=== PATIENT | male | born 2000 ===

== ENCOUNTER 2024-04-17 12:28 | Inpatient (IN) | payer OTHER ==
[~2024-04-17] VITALS: Ht 162.6 cm; Wt 113.4 kg
[2024-04-17] MEDS ORDERED: DiphenhydrAMINE HCl 50 MG Cap PO PRN (14:35)
[2024-04-17] MEDS ORDERED: Calcium Carbonate 500 MG Tab Chew PO PRN (14:35)
[2024-04-17] MEDS ORDERED: HydrOXYzine Pamoate 50 MG Cap PO PRN (14:40)
[2024-04-17] MEDS ORDERED: Haloperidol Lactate Inj. 5 MG/ML Injection IM PRN (14:40)
[2024-04-17] MEDS ORDERED: FLU VACC TS2024-25(6MOS UP)/PF 45 MCG/0.5 ML SYRINGE IM SCH (14:40)
[2024-04-17] MEDS ORDERED: DiphenhydrAMINE HCl 50 MG/ML 1ML Vial IV PRN (14:40)
[2024-04-17] MEDS ORDERED: Acetaminophen 325 MG TABLET PO PRN (14:40)
[2024-04-17] MEDS ORDERED: Aluminum Hydroxide 320MG/5ML 473 ML PO PRN (14:40)
[2024-04-17] MEDS ORDERED: Ibuprofen 600 MG Tab PO PRN (14:40)
[2024-04-17] MEDS ORDERED: Polyethylene Glycol 3350 17 gm PO PRN (14:45)
[2024-04-17] MEDS ORDERED: OLANZapine ODT 10 MG Tab MM PRN (14:45)
[2024-04-17] MEDS ORDERED: TraZODone HCl 50 MG Tab PO PRN (14:45)
[2024-04-17] MEDS ORDERED: Ondansetron 4 MG SoluTab MM PRN (14:45)
[2024-04-17] MEDS ORDERED: Haloperidol 5 MG Tab PO PRN (14:45)
[2024-04-17] MEDS ORDERED: Melatonin 3 MG Tab PO PRN (14:45)
[2024-04-17] MEDS ORDERED: LORazepam 2 MG/ML 1ML Injection IM PRN (14:45)
[2024-04-17] MEDS ORDERED: LORazepam 2 MG Tab PO PRN (14:50)
[2024-04-17] MEDS ORDERED: ALBU90OI INH (17:23)
[2024-04-17] MEDS ORDERED: SYMBICORT 80-10.2 GM (17:27)
[2024-04-17] MEDS ORDERED: FEROSUL PO (17:32)
[2024-04-17] MEDS ORDERED: Prozac20 MG PO (17:33)
[2024-04-17] MEDS ORDERED: LITH300C PO (17:34)
[2024-04-17] MEDS ORDERED: METFORMIN ER G500 MG PO (17:36)
[2024-04-17] MEDS ORDERED: DEPO-TESTO200 MG/1 M IM (17:41)
--- NOTE | 2024-04-17 18:04 | NUR ---
ADMIT AND SHIFT SUMMARY AT 1415 PATIENT ARRIVED TO UNIT VIA SECURE TRANSPORT FROM [facility] IN [place]. CONTINUES TO VERBALIZE HAVING SI THOUGHTS, BUT NO PLAN TO HARM SELF WHILE HERE. NO HI OR AVH. BECOMING TEARFUL SEVERAL TIMES DURING INTAKE QUESTIONS, THEN AFTER GIVING TOUR OF UNIT PATIENT VERBALIZED FEELING OVERWHELMED AND CRYING. AFTER SPENDING TIME IN SENSORY ROOM AND MAKING A PHONE CALL, PATIENT APPEARS TO BE IN BETTER SPIRITS. PATIENT JOINING PEERS AT DINNER AND REQUESTING A JOURNAL.
[2024-04-17 18:12] VITALS: BP 144/95
[2024-04-17] MEDS ORDERED: Mometasone/Formoterol MDI 100/5 mcg 13 GM INH SCH (18:45)
[2024-04-17] MEDS ORDERED: Albuterol HFA200 ACT/6.7 GM INH INH PRN (18:45)
[2024-04-17] MEDS ORDERED: Ferrous Sulfate 325 MG Tab PO SCH (21:00)
[2024-04-17] MEDS ORDERED: FLUoxetine HCL 20 MG CAP PO SCH (21:00)
[2024-04-17] MEDS ORDERED: Lithium Carbonate 300 MG Cap PO SCH (21:00)
[2024-04-17 22:49] VITALS: BP 128/88
--- NOTE | 2024-04-18 04:27 | NUR ---
SHIFT SUMMARY PT PRESENT BY NURSES STATION AT START OF SHIFT TALKING ON THE TELEPHONE WITH HIS SIGNIFICANT OTHER, KENNY. PT C/O A SORE THROAT AND RECEIVED TYLENOL AND ADVIL, WITH RELIEF. PT HAS DENIED ANY SI, HI OR AVH. HE HAD EVENING SNACK, WAS COMPLIANT WITH MEDICATIONS. HE RECEIVED PRN TRAZODONE AND MELATONIN. HE WENT TO BED AROUND 2044. HE HAS APPEARED TO SLEEP WELL THROUGHOUT THE NIGHT WITH RESPIRATIONS CONFIRMED. Q15 MINUTE CHECKS BY STAFF PER UNIT PROTOCOL.
[2024-04-18] MEDS ORDERED: MetFORMIN HCl 500 mg PO SCH (08:00)
[2024-04-18 08:23] VITALS: BP 133/86
[2024-04-18] MEDS ORDERED: Multivitamins 1 Tab PO SCH (09:00)
--- NOTE | 2024-04-18 16:46 | NUR ---
SHIFT SUMMARY PT WAS UP AND HAS PARTICIPATED IN ALL MEALS DURING THIS SHIFT. PT MOSTLY STAYED IN BED THROUGHOUT THE DAY BUT DID PARTICIPATE IN A COUPLE OF ACTIVITY GROUPS. SOMEWHAT WITHDRAWN AND NOT VERY FORTHCOMING WITH INFORMATION. PT DID HAVE A GIRLFRIEND COME VISIT AND SHE DROVE DOWN FROM [place] TO SEE THE PT. PT HAS DENIED SI/HI/AVH THROUGHOUT THE SHIFT, CONTINUED Q15 SAFETY CHECKS THROUGHOUT THE SHIFT TO ENSURE PT SAFETY.
[2024-04-18 20:10] VITALS: BP 133/100
--- NOTE | 2024-04-19 05:27 | NUR ---
SHIFT NOTE: AT THE START OF THE SHIFT PT WAS CALM AND WATCHING TV WITH PEERS. AFTER SNACK PT C/O INCREASING ANXIETY AND REQUESTED A PRN FOR ANXIETY. WHILE MEDICATING PT WITH 2100 MEDS AND VISTARIL PRN PT STARTED TO BECOME TEARFUL. OFFERED THE SENSORY ROOM TO PT TO TRY TO CALM DOWN. PT SPOKE WITH CRN IN THE SENSORY ROOM AND THEN STAYED IN IT FOR A SHORT AMOUNT OF TIME UNTIL CALM, THEN JOINED PEERS IN THE GROUP ROOM TO FINISH COLLAGE AND WATCH TV. PT'S MAIN TRIGGER WAS THAT PT DOES NOT FEEL LIKE PEOPLE ACCEPT HIS TRANSITIONING FROM FEMALE TO MALE AND THE LACK OF RESOURCES AND SUPPORT IS CONTRIBUTING TO THE DIFFICULTIES AND ANXIETY PT IS HAVING. CRN FOUND RESOURCES THAT PT CAN USE WHEN HOME, PACKET PRINTED AND HANDED TO DAY SHIFT TO PASS ON TO PT WHEN AWAKE. PT WENT TO BED AFTER COLLAGE FINISHED, AND REMAINED IN ROOM FOR THE REST OF THIS SHIFT. PT WAS COMPLIANT WITH MEDICATIONS AND REDIRECTIONS THIS SHIFT.
[2024-04-19 08:08] VITALS: BP 130/86
--- NOTE | 2024-04-19 15:26 | NUR ---
PT VERY DIFFICULT TO WAKE FOR BKFT, HE DID EVENTUALLY ATTEND AND AFTER TAKING MEDICATION HE WAS BACK INTO BED. HE WAS UP FOR LUNCH, OFFERED A SHOWER AND STATED HE PREFERS AND EVENING SHOWER. DENIED SI/HI/AVH AT THAT TIME WELL. LAST CHANCE GIVEN FOR SNACK TIME, HE HAS SLEPT OR REMAINED IN HIS ROOM ALL DAY. ATTEMPTED TO SPEAK TO HIM AT ONE TIME ABOUT HIS TESTOSTERONE MEDICATION, HE SHRUGGED AND WALKING AWAY, HE STATED IT DOESN'T REALLY MATTER. HE CONTINUES TO SLEEP AT THIS TIME AND IS BEING MONITORED Q15 FOR SAFETY
[2024-04-19] MEDS ORDERED: OLANZapine 5 MG Tab PO SCH (21:00)
[2024-04-19 21:04] VITALS: BP 143/101
--- NOTE | 2024-04-20 04:26 | NUR ---
SHIFT SUMMARY: PATIENT WAS IN THE GROUP ROOM WATCHING A MOVIE AT THE BEGINNING OF THE SHIFT. HE PARTICIPATED IN SNACK AND FOLLOW UP IN THE DINING ROOM AT 1999. HE WAS MOSTLY MEDICATION COMPLIANT. HE DID WANT PRN MELATONIN, TRAZODONE AND VISTARIL FOR SLEEP. HE REFUSED HIS ZYPREXA, STATING, "I DON'T TAKE THAT". MEDICATION EDUCATION WAS RECEIVED STOICALLY. HE WAS INFORMED THAT RN WOULD HAVE THE MEDICATION AVAILABLE FOR THE NEXT HOUR. AT THAT TIME, RN PLACED IT IN THE RETURN BIN FOR THE PHARMACY. HE DID NOT REAPPROACH FOR THE ZYPREXA, AND SO DID NOT HAVE IT ON THIS SHIFT. HE DENIED ANY THOUGHTS OF SUICIDAL IDEATION OR SELF HARMING. HE STATED THAT HE WAS "DISSOCIATING FROM ANXIETY". HE DID NOT WANT TO TRY THE ZYPREXA FOR THAT PURPOSE. HE DID AGREE TO TRY THE SENSORY ROOM, WHICH APPEARED TO HAVE GOOD EFFECT, ALTHOUGH HE WAS STOIC AND DID NOT ANSWER MANY QUIERIES ABOUT SUCCESS OF SAME. HE WENT TO BED AFTER SITTING IN THE SENSORY ROOM FOR A TIME, AND WAS NOTED TO BE RESTING QUIETLY WITH EYES CLOSED AND RESPIRATIONS CONFIRMED FOR THE REMAINDER OF THE SHIFT. CONTINUING TO MONITOR FOR SAFETY WITH Q15 MINUTE CHECKS.
[2024-04-20 07:58] VITALS: BP 131/87
[2024-04-20 08:33] VITALS: BP 124/77
--- NOTE | 2024-04-20 12:35 | NUR ---
NURSE NOTE: RECIEVED REPORT FROM MEGGAN SLADE, WILL ASSUME CARE OF PT.
--- NOTE | 2024-04-20 17:41 | NUR ---
SHIFT NOTE: PT SPENT MOST OF THE DAY IN ROOM. DID NOT PARTICIPATE IN GROUP TIME WITH PEERS. NO PRN MEDICATIONS RECIEVED THE SHIFT. PT WAS COMPLIANT WITH MEDICATIONS THIS AFTERNOON. Q15 MINUTE CHECKS WERE PREFORMED AND TO CONTINUE.
[2024-04-20 20:55] VITALS: BP 139/93
--- NOTE | 2024-04-21 04:26 | NUR ---
SHIFT SUMMARY: PATIENT WAS IN BED AT THE BEGINNING OF THIS SHIFT. HE GOT UP FOR SNACK AND FOLLOW UP AT 1999. HE WAS COMPLIANT WITH EVENING MEDICATION ADMINISTRATION. HE DID NOT REFUSE ZYPREXA THIS SHIFT, BUT DID REFUSE HIS IRON, STATING, "I ONLY NEED ONE OF THOSE A DAY". HE SPENT THE REST OF THE SHIFT RESTING QUIETLY IN BED WITH EYES CLOSED AND RESPIRATIONS CONFIRMED. HE DENIED THOUGHTS OF SELF HARM OR SUICIDAL IDEATION THIS SHIFT. CONTINUING TO MONITOR FOR SAFETY WITH Q15 MINUTE CHECKS.
[2024-04-21 08:42] VITALS: BP 120/65
--- NOTE | 2024-04-21 17:51 | NUR ---
SHIFT ASSESSMENT PT HAS SHOWN IMPROVEMENT TODAY OVER THE LAST 3 DAYS THAT THIS RN HAS CARED FOR HIM. HE HAS BEEN UP FOR ALL MEALS, PARTICIPATED IN 2 GROUPS AND WAS PARTIALLY INVOLVED IN ANOTHER. THIS EVENING PT APPROACHED AND SHARED MORE INFORMATION THAN HE HAS IN THE 4 DAYS THIS RN HAS CARED FOR HIM. HE STS HE IS STILL ENROLLED AT [employer] BUT IS NOT ACTIVELY ATTENDING CLASSES. HE IS 3 TERMS FROM FINISHING AND WANTS TO THEN OBTAIN HIS MASTERS IN SCIENCE, HOWEVER, HE STS NOT BEING THAT GOOD WITH MATH AND IS AFRAID TO APPROACH THAT CONCEPT. PT THEN SHARED THAT HE IS SLOWLY STARTING TO FEEL "ANXIOUS" AND THIS IS WHAT HAPPENS BEFORE HE BECOMES MANIC. OLANZIPINE WORKS BEST HE SAYS BUT IT PUTS HIM INTO DEEP SLEEP. Q15 MIN CHECKS TO ENSURE SAFETY
[2024-04-21 22:08] VITALS: BP 126/86
--- NOTE | 2024-04-22 04:39 | NUR ---
SHIFT SUMMARY PT ON TELEPHONE WITH SIGNIFICANT OTHER AT START OF SHIFT. PT DENIES ANY SI, HI OR AVH. PT REPORTED THAT HE FEELS BETTER, BUT IS WORRIED THAT HE IS GOING TO START TO HAVE A MANIC PHASE. PT IS CALM, AND FLAT. HE INTERACTS IN GROUP ROOM, WATCHING TV WITH PEERS AND STAFF. HE HAD HIS EVENING SNACK. HE WAS COMPLIANT WITH ALL MEDS EXCEPT FOR FERROUS SULFATE. HE REQUESTED AND RECEIVED PRN MELATONIN AND TRAZODONE. PT WENT TO BED AROUND 2145, AND HAS APPEARED TO SLEEP MOST OF THE NIGHT, WITH RESPIRATIONS CONFIRMED. Q15 MINUTE CHECKS TO CONTINUE PER UNIT PROTOCOL.
[2024-04-22] MEDS ORDERED: Testosterone Cypionate 200 MG / ML Vial IM SCH (09:00)
--- NOTE | 2024-04-22 16:52 | NUR ---
SHIFT NOTE PT A&O X4 THIS SHIFT. SLEPT THROUGH BREAKFAST AND REFUSED TO GET OOB UNTIL BEFORE LUNCH. PT DENIES SI/HI/AVH BUT C/O FEELING VERY TIRED THIS MORING. PT PARTICIPATED IN ALL SNACKS AND SOME MEALS THIS SHIFT. AFTER LUNCH PT SPENT SOME TIME 1:1 WITH SHAWNA ALBRIGHT. IN THE AFTERNOON PT PARTICIPATED IN OPEN GROUP ROOM AND WATCHED SOME TV AND LATER PLAYED CARD GAME WITH ELLIOTT GREEN AND SHAWNA ALBRIGHT AND FELLOW PEER. NO TEARFUL EPISODES WERE WITNESSED BY THE RN THIS SHIFT. PT WAS COMPLIANT WITH ALL MEDICATIONS.
[2024-04-22 20:27] VITALS: BP 132/96
--- NOTE | 2024-04-23 04:23 | NUR ---
SHIFT SUMMARY PATIENT UP AMBULATING IN HALLS WITH PEER. DENIES SI, HI OR AVH. PATIENT VERBALIZED SLIGHT URGE TO PICK AT SKIN, SMALL AMT OF ACNE TO RIGHT CHEEK INFLAMED NO OTHER EVIDENCE OF PICKING SEEN. PATIENT APPEARS TO BE SLEEPING AT THIS TIME WITH PRN MELATONIN AND TRAZODONE
[2024-04-23 08:05] VITALS: BP 107/70
[2024-04-23] MEDS ORDERED: Mometasone/Formoterol MDI 100/5 mcg 13 GM INH SCH (09:00)
--- NOTE | 2024-04-23 18:15 | NUR ---
SHIFT SUMMARY PT AxOx4. PLEASANT AND COOPERATIVE WITH CARE. PT DENIES SI/HI AND AVTH THIS SHIFT. PT SLEPT IN THROUGH FIRST GROUP, BUT ATTENDED ALL OTHERS THIS SHIFT INCLUDING MINGLING APPROPRIATELY WITH STAFF AND PEERS IN [place]. PROVIDER ORDERED INCREASE IN [place] TO BE STARTED THIS EVENING. PT AWARE AND AGREEABLE TO TREATMENT PLAN. PT IS CURRENTLY SITTING IN GROUP ROOM WATCHING A MOVIE WITH OTHERS. DENIES ANY NEEDS AT THIS TIME.
[2024-04-23] MEDS ORDERED: Lithium Carbonate 300 MG Cap PO SCH (21:00)
[2024-04-23 21:53] VITALS: BP 131/85
--- NOTE | 2024-04-24 04:02 | NUR ---
SHIFT SUMMARY PATIENT DENIES SI, HI, AND AVH. VERBALIZED THAT HE IS FEELING "MORE AWAKE TODAY" UP IN [place] BETWEEN ACTIVITIES, USING JOURNAL AND DRAWING PICTURES. PATIENT SLEEPING WELL T/O NIGHT WITH MELATONIN GIVEN FOR SLEEP.
--- NOTE | 2024-04-24 08:32 | NUR ---
PT DECLINED TO GET UP FOR BREAKFAST.
[2024-04-24] MEDS ORDERED: Lithium Carbonate 300 MG Cap PO SCH (09:00)
[2024-04-24 09:42] VITALS: BP 148/93
--- NOTE | 2024-04-24 11:24 | NUR ---
DISCHARGE INFORMATION: SPOKE WITH PT AND CONFIRMED PCP AND PHARMACY. PHARMACY: [facility]. [phone] PCP: NICOLE MCNULTY AT [facility].[phone] CALL PLACED TO [facility] AND SPOKE WITH BERLIN DYER. FOLLOW UP APPOINTMENT SCHEDULED WITH PRICILA FOR: 04/30 @ 11:00 AM. PT NEEDS TO ARRIVE AT 10:55. [facility]OME[facility] SLADE REQUESTED THAT ADMISSION NOTES BE FAXED TO TO THEM AT [phone] (ATTENTION GOMEZ)
--- NOTE | 2024-04-24 15:53 | NUR ---
DISCHARGE TRANSPORTATION: CALL PLACED TO [facility] LINE AT [phone]. TRANSPORT ARRANGED FOR 04/25 AT 1300 WITH [facility]. REQUESTED THAT STAFF CALL IF RIDE IS MORE THAN 15 MINUTES LATE.
--- NOTE | 2024-04-24 17:08 | NUR ---
SHIFT SUMMARY: PT ALERT, ORIENTED AND COOPERATIVE. COMPLIANT WITH MEDICATIONS. PT HAS BEEN IN GOOD SPIRITS TODAY, SMILING, TALKATIVE AND ACTIVE IN UNIT [place]. ATTENDED GROUPS AND MEALS. PT AWARE OF PLAN TO DISCHARGE 04/25. TRANSPORT ARRANGED FOR DISCHARGE AND FOLLOW UP APPOINTMENT SCHEDULED. PT DENIES SI, HI AND ABH.
[2024-04-24 22:08] VITALS: BP 141/94
--- NOTE | 2024-04-25 04:05 | NUR ---
SHIFT SUMMARY PATIENT DENIES SI, HI, OR AVH. PARTICIPATING IN [place], VISITING WITH STAFF AND PEERS. APPEARS TO BE SLEEPING WELL T/O RESP EVEN AND UNLABORED, WITH NO NEED FOR PRN MEDICATIONS.
[2024-04-25 08:26] VITALS: BP 136/96
--- NOTE | 2024-04-25 11:59 | NUR ---
PT DENIED ANY THOUGHTS OF SELF HARM OR HARM AGAINST OTHERS, PT DENIED AVH, ANXIETY OR PHYSICAL PAIN. PT HAS PARTICIPATED IN GROUPS AND BEEN ACTIVE IN THE [facility]. PT HAS BEEN COOPERATIVE WITH CARE.
--- NOTE | 2024-04-25 13:06 | NUR ---
CALLED PLACED TO [facility] AND SPOKE WITH [facility]. NEW RX CALLED IN.
--- NOTE | 2024-04-25 13:35 | NUR ---
PT WAS DISCHARGED WITH ALL POSSESSIONS AND DISCHARGE INSTRUCTIONS. PT EXPRESSED READINESS TO GO HOME. PT WAS COOPERATIVE WITH CARE AND PLEASANT IN THE [place].
== END 2024-04-25 13:05 | disposition home or self-care (01) | DRG 885 ==
LOC: BHU 12:28
PROVIDERS: ADMIT Psychiatry & Neurology Psychiatry
DX: F31.64 Bipolar disorder, current episode mixed, severe, with psychotic features (principal); R45.851 Suicidal ideations; F43.25 Adjustment disorder with mixed disturbance of emotions and conduct; F64.0 Transsexualism; Z88.8 Allergy status to other drugs, medicaments and biological substances; Z79.899 Other long term (current) drug therapy; Z79.84 Long term (current) use of oral hypoglycemic drugs; Z79.1 Long term (current) use of non-steroidal anti-inflammatories (NSAID); Z79.891 Long term (current) use of opiate analgesic; Z79.51 Long term (current) use of inhaled steroids
CPT/HCPCS: A9270